=== PATIENT | male | born 1980 | race Hispanic/Latino ===

== ENCOUNTER 2016-12-13 20:48 | Emergency (ER) | payer OTHER ==
[2016-12-13 22:07] VITALS: BP 122/72; PULSE 80; RESP 14; TEMP 98.3; O2SAT 99
--- NOTE | 2016-12-13 22:52 | C.PDOC ---
History Of Present Illness 36 year old male presents to the ED with complaints of pain to right great toe and swelling after accidentally stubbing his toe prior to arrival. He denies change in sensation or other injuries. Time Seen by Provider: 12/13/16 21:56 Chief Complaint (Nursing): Lower Extremity Problem/Injury History Per: Patient History/Exam Limitations: no limitations Onset/Duration Of Symptoms: Hrs Current Symptoms Are (Timing): Still Present Recent travel outside of the [place]: No - Ankle/Foot Description Of Injury: Struck With Object (stubbed toe ) Past Medical History Reviewed: Historical Data, Nursing Documentation, Vital Signs Vital Signs: Last Vital Signs Temp 98.3 F 12/13/16 21:31 Pulse 80 12/13/16 21:31 Resp 14 12/13/16 21:31 BP 122/72 12/13/16 21:31 Pulse Ox 99 12/13/16 22:58 Family History: States: Unknown Family Hx - Social History Hx Alcohol Use: Yes Hx Substance Use: No - Immunization History Hx Tetanus Toxoid Vaccination: Yes Hx Influenza Vaccination: No Hx Pneumococcal Vaccination: No Review Of Systems Musculoskeletal: Positive for: Foot Pain (right toe pain ) Neurological: Negative for: Weakness, Numbness Physical Exam - Physical Exam Appears: Non-toxic, No Acute Distress Skin: Warm, Dry Head: Atraumatic, Normacephalic Eye(s): bilateral: Normal Inspection, PERRL, EOMI Extremity: Normal ROM, Tenderness (mild tenderness to right great toe ), No Pedal Edema, No Calf Tenderness, Capillary Refill (good capillary refill, less than two seconds ), No Deformity, Swelling (mild swelling to right great toe ), Other (purple discoloration of 1/4 of nail bed of right great toe. ) Pulses: Left Dorsalis Pedis: Normal, Right Dorsalis Pedis: Normal Neurological/Psych: Oriented x3, Normal Motor, Normal Sensation Gait: Steady ED Course And Treatment O2 Sat by Pulse Oximetry: 99 (RA) - Other Rad Right foot X-Ray X-Ray: Interpreted by Me, Viewed By Me Interpretation: Questionable fracture to right great toe. Progress Note: X-Ray of right foot was ordered and patient was given Toradol. Orthopedic shoe was applied and patient instructed to follow up with patient navigator in 1-2 days. Disposition Counseled Patient/Family Regarding: Studies Performed, Diagnosis, Need For Followup, Rx Given - Disposition Referrals: Podiatry Clinic [Outside] Disposition: HOME/ ROUTINE Disposition Time: 22:55 Condition: STABLE Additional Instructions: Wear orthopedic shoe for comfort. Ibuprofen for pain. Follow up with podiatry clinic. May tape right great toe to second toe to decrease discomfort. Return to ER for any worsening symptoms. Prescriptions: Ibuprofen [Motrin] 600 mg PO TID #30 tab Instructions: Toe Fracture (ED) Forms: [facility] [facility] (Latvian), General Discharge Instructions - Clinical Impression Clinical Impression: Injury of right great toe, Subungual contusion of toe of right foot - PA / LAW ENFORCEMENT DIRECTOR / Resident Statement MD/DO has reviewed & agrees with the documentation as recorded. - Scribe Statement The provider has reviewed the documentation as recorded by the Scribtoby Arteaga All medical record entries made by the Jaelyn were at my direction and personally dictated by me. I have reviewed the chart and agree that the record accurately reflects my personal performance of the history, physical exam, medical decision making, and the department course for this patient. I have also personally directed, reviewed, and agree with the discharge instructions and disposition.
--- NOTE | 2016-12-14 11:42 | RAD ---
PROCEDURE: Radiographs of the right great toe. TECHNIQUE:: AP radiograph of the right foot, with oblique and lateral view of the right great toe. COMPARISON: None. FINDINGS: BONES: Normal. No fracture. JOINTS: Normal. SOFT TISSUES: Normal. OTHER FINDINGS: None. IMPRESSION: No evidence of acute displaced fracture nor dislocation
== END 2016-12-13 23:02 | disposition home or self-care (01) ==
LOC: C.ER 20:48
DX: S90.211A Contusion of right great toe with damage to nail, initial encounter (principal); W22.8XXA Striking against or struck by other objects, initial encounter
CPT/HCPCS: 73660; 96372; 99283; J1885